=== PATIENT | female | born 1965 | race Caucasian/White ===

== ENCOUNTER → 2017-05-11 | Emergency (ER) | payer BC, OTHER ==
[~2017-05-11] VITALS: Ht 160 cm; Wt 86.4 kg
[~2017-05-11] MED LIST: ARMOUR THYROID30 MG PO; ARMOUR THYROID60 MG PO; BELLADONNA ALK/PHENOBARBITAL 5 ML UDC PO ONE; DICYCLOMINE HCL 20 MG TAB PO ONE; DICYCLOMINE HCL10 MG PO; FAMOTIDINE 20 MG/2 ML VIAL IV STA; LIDOCAINE VISC 2% SOLN 15 ML UDC PO ONE; MAGNESIUM/ALUMINUM/SIMETHICONE 30 ML UDC PO ONE; METOCLOPRAMIDE HCL 10 MG/2ML VIAL IV ONE; ONDANSETRON HCL 4 MG ORAL DISINTEGRATING TAB PO ONE; ONDANSETRON HCL INJ 2 MG/ML VIAL IV ONE; PANTOPRAZOLE 40 MG 10ML VIAL IV STA; PREVACID15 MG PO; RANITIDINE HCL300 M1 PO; SODIUM CHLORIDE 0.9% 1000ML 1,000 ML IV SCH; SUCRALFATE1 G/10 ML PO; SUCRALFATE1 GM PO; ULTRAM 50MG50 MG PO; Z.0.LEVOTHROID25 MCG
== END | disposition home or self-care (01) ==
LOC: FSED 15:16
DX: R10.13 Epigastric pain (principal); R11.0 Nausea; R19.7 Diarrhea, unspecified
CPT/HCPCS: 71020; 74177; 80048; 84484; 85025; 93005; 99283; J2405

== ENCOUNTER 2020-03-01 11:22 | Inpatient (IN) | payer OTHER ==
[~2020-03-01] VITALS: Ht 160 cm; Wt 94.3 kg
[~2020-03-01 11:22] MED LIST changes: -BELLADONNA ALK/PHENOBARBITAL 5 ML UDC PO ONE; -DICYCLOMINE HCL 20 MG TAB PO ONE; -FAMOTIDINE 20 MG/2 ML VIAL IV STA; -LIDOCAINE VISC 2% SOLN 15 ML UDC PO ONE; -MAGNESIUM/ALUMINUM/SIMETHICONE 30 ML UDC PO ONE; -METOCLOPRAMIDE HCL 10 MG/2ML VIAL IV ONE; -ONDANSETRON HCL 4 MG ORAL DISINTEGRATING TAB PO ONE; -ONDANSETRON HCL INJ 2 MG/ML VIAL IV ONE; -PANTOPRAZOLE 40 MG 10ML VIAL IV STA; -SODIUM CHLORIDE 0.9% 1000ML 1,000 ML IV SCH
[2020-03-01] MEDS ORDERED: LEVOTHYROXINE25 MCG (11:54)
[2020-03-01] MEDS ORDERED: NITROGLYCERIN 2% OINT 1 GM PKT TOP ONE (12:00)
[2020-03-01] MEDS ORDERED: LORAZEPAM INJ 2 MG/ML VIAL IV ONE (12:00)
[2020-03-01] MEDS ORDERED: ASPIRIN 81 MG CHEW TAB PO ONE (12:00)
--- OUTSIDE RECORDS SUMMARY | 2020-03-01 12:22 | XMS REPORT | Continuity of Care Document ---
Author Author Vinny Riggins [employer] Organization [employer] Address Unknown Phone Unavailable Care Team Providers Care Second Cook And Baker Name Role Phone 2nd Watch Information [employer] Unavailable Un available Problems Problem Status Onset Date Classification Date Reported Comments Source Claudication Active Problem 05/13/2018 [facility] Encounter for preprocedural cardiovascular examination Active Diagnosis 10/23/2017 [facility] Precordial chest pain Active Diagnosis 05/08/2018 [facility] SOBOE (shortness of breath on exertion) Active Diagnosis 05/08/2018 [facility] Swelling of lower extremity Ac tive Diagnosis 0 05/08/2018 [facility] Other symptoms involving cardiovascular system Active Diagnosis 10/23/2017 [facility] Pre-syncope Active Diagnosis 05/08/2018 [facility] Pain of lower extremity, unspecified laterality Active Diagnosis 10/23/2017 [facility] Acute on chronic diastolic congestive heart failure Active Problem 05/13/2018 [facility] HTN (hypertension), benign Act geno Problem [facility] Tachycardia Active Diagnosis 05/08/2018 [facility] Palpitations Active Diagnosis 05/08/2018 [facility] Medications Medication Details Route Status Patient Instructions Ordering Provider Order Date Source Lasix 1 tablet Orally Active 40 MG Orally Once a day 08/08/2017 [facility] Potassium Chloride ER 1 tablet with food Orally Active 20 MEQ Orally Once a day Cherie 08/08/2017 [facility] Metoprolol Succinate ER 1 tabl et Orally Active 25 MG Orally Once a day 08/08/2017 [facility] Nitroglycerin 1 tablet 5 mins apart 3 max then call 911 Sublingual Active 0.4 MG Sublingual as needed [facility] 07/17/2017 [facility] Aspir-81 1 tablet Orally Active 81 MG Orally Once a day Cherie 07/17/2017 [facility] LEVOTHYROXINE ONE TABLET orally Active 0.5 orally ONCE A DAY Cherie [facility] lionthyronine 1 Tablet orally Active 25 mg orally once a day Cherie [facility] Nitroglycerin 1 tablet 5 mins apart 3 max then call 911 Sublingual Active 0.4 MG Sublingual as needed Sh alaby [facility] Aspirin 1 tablet Orally Active 81 MG Orally Once a day Cherie [facility] Allergies, Adverse Reactions, Alerts Substance Category Reaction Severity Reaction type Status Date Reported Comments Source N.K.D.A. Adverse Reaction Info Not Available Adverse Reaction Active 04/28/2018 [facility] Immunizations No Data Provided for This Section Results No Data Provided for This Section Pathology Reports No Data Provided for This Section Diagnostic Reports No Data Provided for This Section Consultation Notes No Data Provided for This Section Discharge Summaries No Data Provided for This Section History and Physicals No Data Provided for This Section Vital Signs Vital Sign Value Date Comments Source Weight 204.2 04/28/2018 [facility] Height 63 0 04/28/2018 [facility] Heart Rate 72 04/28/2018 [facility] Diastolic (mm Hg) 82 04/28/2018 [facility] Systolic (mm Hg) 134 04/28/2018 [facility] Weight 195 10/21/2017 [facility] Height 63 0 10/21/2017 [facility] Heart Rate 70 10/21/2017 [facility] Diastolic (mm Hg) 100 10/21/2017 [facility] Systolic (mm Hg) 140 10/21/2017 [facility] Weight 195 08/08/2017 [facility] Height 63 0 08/08/2017 [facility] Heart Rate 64 08/08/2017 [facility] Diastolic (mm Hg) 80 08/08/2017 [facility] Systolic (mm Hg) 130 08/08/2017 [facility] Weight 194 07/17/2017 [facility] Height 63 0 07/17/2017 [facility] Heart Rate 66 07/17/2017 [facility] Diastolic (mm Hg) 98 07/17/2017 [facility] Systolic (mm Hg) 122 07/17/2017 [facility] Encounters No Data Provided for This Section Procedures No Data Provided for This Section Assessment and Plan No Data Provided for This Section Plan of Care No Data Provided for This Section Social History No Data Provided for This Section Family History No Data Provided for This Section Advance Directives No Data Provided for This Section Functional Status No Data Provided for This Section
--- OUTSIDE RECORDS SUMMARY | 2020-03-01 12:22 | XMS REPORT | Continuity of Care Document ---
Author Author [facility] t Organization [facility] Address [address] [place] [address] Phone Unavailable Care Team Providers Care Radiation Protection Engineer Name Role Phone KIT PEACE, ANAMIKA PCP Mackenzie Wiseman Attphys Dayami Vega Attphys Philly Naidu Attphys Unavailable Dayami Vega Unavailable Payers Payer Name Policy Type Policy Number Effective Date Expiration Date S our Sliding Fee - Cat 2 CI [id number] 2018 00:00:00 2019-11 00:00:00 [facility] Choice Excha [id number] [facility] Problems Condition Name Condition Details Condition Category Status Onset Date Resolution Date Last Treatment Date Treating Clinician Comments Source PARENT-CHILD RELATIONAL PROBLEM Condition Active 00:00:00 2018-12-05 12:08:12 Dayami Vega [facility] Claudication April dication Active Problem 05/13/2018 [facility] Cardi[facility] Problem Active 2018-05-13 03:45:32 Vinny Riggins Encounter for preprocedural cardiovascular examination Encounter for preprocedural cardiovascular examination Active Diagnosis 10/23/2017 [facility] Cardiovascular Diagnosis Active 2017-10-23 02:46:22 Vinny Riggins Precordial chest pain Prec ordial chest pain Active Diagnosis 05/08/2018 [facility] Cardiovascular Diagnosis Active 2018-05-08 04:04:41 Vinny Riggins SOBOE (shortness of breath on exertion) SOBOE (shortness of breath on exertion) Active Diagnosis 05/08/2018 [facility] Cardiovascular Diagnosis Active 2018-05-08 04:04:41 Ermias Riggins Swelling of lower extremity Sw elling of lower extremity Active Diagnosis 05/08/2018 [facility] Cardiovascular Diagnosis Active 2018-05-08 04:04:41 Vinny Riggins Other symptoms involving cardiovascular system Other symptoms involving cardiovascular system Active Diagnosis 10/23/2017 [facility] Cardiovascular Diagnosis Active 2017-10-23 02:46:22 Me emelina Riggins Pre-syncope Pre- syncope Active Diagnosis 05/08/2018 [facility] Cardiovascular Diagnosis Active 2018-05-08 04:04:41 Vinny Riggins Pain of lower extremity, unspecified laterality Pain of lower extremity, unspecified laterality Active Diagnosis 10/23/2017 [facility] Cardiovascular Diagnosis Active 2017-10-23 02:46:22 Me emelina Riggins Acute on chronic diastolic congestive heart failure Acute on chronic diastolic congestive heart failure Active Problem 05/13/2018 [facility] Problem Active 2018-05-13 03:45:32 Vinny Riggins HTN (hypertension), benign HTN (hypertension), benign Active Problem 05/13/2018 [facility] Problem Active 2018-05-13 03:45:32 Vinny Riggins Tachycardia Tach ycardia Active Diagnosis 05/08/2018 [facility] Cardiovascular Diagnosis Active 2018-05-08 04:04:41 [facility] Palpitations Palp itations Active Diagnosis 05/08/2018 [facility] Cardiovascular Diagnosis Active 2018-05-08 04:04:41 [facility] Allergies, Adverse Reactions, Alerts Allergy Name Allergy Type Status Severity Reaction(s) Onset Date Inacti ve Date Treating Clinician Comments Source N.K.D.A. N.K.D.A. Active Info Not Available 2018-04-28 00:00:00 [facility] Medications Ordered Medication Name Filled Medication Name Start Date Stop Da te Current Medication? Ordering Clinician Indication Dosage Frequency Signature (SIG) Comments Components Source LEVOTHYROXINE 2018-05-08 04:04:41 Yes Joy Crespo ONE TABLET [facility] lionthyronine 2018-05-08 04:04:41 Yes Joy Hendersonlaby 1 Tablet [facility] Nitroglycerin 2018-05-08 04:04:41 Yes Joy Crespo 1 tablet 5 mins apart 3 max then call 911 [facility] Celsa nn Aspirin 2018-05-08 04:04:41 Yes Joy Hendersonlaby 1 tablet [facility] Lasix 2017-08-08 00:00:00 Yes Joy Crespo 1 t ablet [facility] Potassium Chloride ER 2017-08-08 00:00:00 Yes Joy bruno 1 tablet with food [facility] Metoprolol Succinate ER 2017-08-08 00:00:00 Yes Joy Hendersonlaby 1 tablet [facility] Nitroglycerin 2017-07-17 00:00:00 Yes Joy Crespo 1 tablet 5 mins apart 3 max then call 911 [facility] Aspir-81 2017-07-17 00:00:00 Yes Mohamadeo Cherie 1 tablet [facility] Ranitidine Hcl 300 Mg Capsule Ranitidine Hcl 300 Mg Capsule 2017 00:00:00 Yes Penelope Salmon Md 300 Daily [facility] Sucralfate 1 Gm Tablet Sucralfate 1 Gm Tablet 2017-05-11 00:00:00 Yes Penelope Salmon Md 1 Four Times Daily as needed for Abdomina l Pain [facility] Lansoprazole (Prevacid*) 15 Mg Capcr Lansoprazole (Prevacid*) 15 Mg Capcr Yes 30 Daily as needed for Indigestion [facility] Ranitidine Hcl 300 Mg Capsule Ranitidine Hcl 300 Mg Capsule Yes 300 Daily as needed for Indigestion [facility] Sucralfate 1 G/10 Ml Susp Sucralfate 1 G/10 Ml Susp Yes 1 Twice A Day as needed for Indigestion [facility] Thyroid,Pork ([place] Thyroid) 30 Mg Tablet Thyroid,Por k ([place] Thyroid) 30 Mg Tablet Yes 30 Every Other Day [facility] Thyroid,Pork ([place] Thyroid) 60 Mg Tablet Thyroid,Por k ([place] Thyroid) 60 Mg Tablet Yes 60 Every Other Day [facility] Tramadol Hcl (Ultram 50MG*) 50 Mg Tab Tramadol Hcl (Ultram 50MG*) 5 0 Mg Tab Yes 50 Every 6 Hours as needed for Pain [facility] Dicyclomine Hcl 10 Mg Capsule, 10 Mg Oral Dicyclomine Hcl 10 Mg Capsule, 10 Mg Oral 2013-11-01 00:00:00 No 10 Bedtime [facility] Levothyroxine Sodium (Levothroid) 25 Mcg Tablet, Levot hyroxine Sodium (Levothroid) 25 Mcg Tablet, 2013-02-10 00:00:00 No Daily [facility] Vital Signs Vital Name Observation Time Observation Value Comments Source Weight 2018-04-28 16:15:00 [facility] Height 2018-04-28 16:15:00 [facility] Heart Rate 2018-04-28 16:15:00 [facility] Diastolic (mm Hg) 2018-04-28 16:15:00 [facility] Systolic (mm Hg) 2018-04-28 16:15:00 [facility] Weight 2017-10-21 14:30:00 [facility] Height 2017-10-21 14:30:00 [facility] Heart Rate 2017-10-21 14:30:00 [facility] Diastolic (mm Hg) 2017-10-21 14:30:00 [facility] Systolic (mm Hg) 2017-10-21 14:30:00 [facility] Weight 2017-08-08 13:30:00 [facility] Height 2017-08-08 13:30:00 [facility] Heart Rate 2017-08-08 13:30:00 [facility] Diastolic (mm Hg) 2017-08-08 13:30:00 [facility] Systolic (mm Hg) 2017-08-08 13:30:00 [facility] Weight 2017-07-17 18:45:00 [facility] Height 2017-07-17 18:45:00 [facility] Heart Rate 2017-07-17 18:45:00 [facility] Diastolic (mm Hg) 2017-07-17 18:45:00 [facility] Systolic (mm Hg) 2017-07-17 18:45:00 [facility] Procedures Procedure Date / Time Performed Performing Clinician [facility] Psychotherapy - [id number] 2019-02-06 12:47:27 Mayra Wiseman [facility] Psychotherapy - [id number] 2019-01-31 21:07:06 Mayra Wiseman [facility] - [id number] 2019-01-25 13:12:17 Mayra Wiseman [facility] - [id number] 2019-01-18 11:06:33 Mayra Wiseman [facility] - [id number] 2019-01-11 16:31:04 Mayra Wiseman [facility] Psychotherapy - [id number] 2018-12-26 07:56:22 Dayami Vega [facility] - [id number] 2018-12-19 08:47:37 Dayami Vega [facility] - [id number] 2018-12-12 13:45:08 Dayami Vega [facility] - [id number] 2018-12-05 12:05:04 Dayami Vega [facility] Encounters Start Date/Time End Date/Time Encounter Type Admission Type Attendi [facility] Care Department Encounter ID Source 2019-02-05 00:00:00 2019-02-05 00:00:00 Office Visit WisemanMayra lockhart [facility] Encounter/[id number] [facility] 2019-01-29 00:00:00 2019-01-29 00:00:00 Office Visit WisemanMayra lockhartabel [facility] Encounter/[id number] [facility] 2019-01-22 00:00:00 2019-01-22 00:00:00 Office Visit Mayra Wisemanabel [facility] Encounter/[id number] [facility] 2019-01-15 00:00:00 2019-01-15 00:00:00 Office Visit Mayra Wiseman [facility] Encounter/[id number] [facility] 2019-01-08 00:00:00 2019-01-08 00:00:00 Office Visit WisemanMayra lockhartabel [facility] Encounter/[id number] [facility] 2018-12-25 00:00:00 2018-12-25 00:00:00 Office Visit Dayami Vega [facility] Encounter/[id number] [facility] 2018-12-18 00:00:00 2018-12-18 00:00:00 Office Visit Dayami Vega [facility] Encounter/[id number] [facility] 2018-12-11 00:00:00 2018-12-11 00:00:00 Office Visit Dayami Vega [facility] Encounter/[id number] [facility] 2018-12-04 00:00:00 2018-12-04 00:00:00 Office Visit Dayami Vega [facility] Encounter/[id number] [facility] 2018-11-20 00:00:00 2018-11-20 00:00:00 Office Visit Philly Hemphill do [facility] Encounter/[id number] [facility] 2018-05-09 08:01:00 2018-05-09 08:01:00 [place] [id number] [facility] 2018-05-09 08:00:00 2018-05-09 08:00:00 [place] [id number] [facility] 2018-04-28 10:15:00 2018-04-28 10:15:00 Outpatient Joy Crespo Md [place] [id number] [facility] 2017-10-21 09:30:00 2017-10-21 09:30:00 Outpatient [place] [id number] [facility] 2017-10-14 09:39:00 2017-10-14 09:39:00 [place]patient [place] [id number] [facility] 2017-08-08 08:30:00 2017-08-08 08:30:00 Outpatient Joy Crespo Md [place] [id number] [facility] 2017-07-17 14:00:00 2017-07-17 14:00:00 [place] [id number] [facility] 2017-07-17 13:45:00 2017-07-17 13:45:00 Outpatient Joy Crespo Md [place] [id number] [facility] 2017-07-17 13:45:00 2017-07-17 13:45:00 [place] [id number] [facility] 2017-07-01 11:00:00 2017-07-01 11:00:00 Outpatient Joy Jones [id number] [employer] 2017-07-01 09:30:00 2017-07-01 09:30:00 Outpatient Joy Jones [id number] [employer] 2017-05-11 15:16:00 2017-05-11 21:33:00 Departed Emergency Room [facility] [id number] [facility] Results This patient has no known results.
[2020-03-01] MEDS ORDERED: ASPIRIN 81 MG CHEW TAB ONE (13:08)
[2020-03-01] MEDS ORDERED: NITROGLYCERIN 2% OINT 1 GM PKT ONE (13:09)
[2020-03-01] MEDS ORDERED: LORAZEPAM INJ 2 MG/ML VIAL ONE (13:09)
[2020-03-01] MEDS ORDERED: LORAZEPAM 0.5 MG TAB ONE (13:28)
[2020-03-01] MEDS ORDERED: LORAZEPAM 0.5 MG TAB PO ONE (13:30)
--- NOTE | 2020-03-01 15:15 | Emergency Department Note ---
History of Present Illnes History of Present Illness Chief Complaint: Chest Pain/sob History of Present Illness This is a 54 year old female. was doing well prior to this. +covid exposure. was seen at urgent care today and had a negative covid test, negative flu and cxr. pt said she is under alot of stress Historian: Patient Arrival Mode: Car Additional Treatment UMBRELLA TIPPER HAND: seen at urgent care History limited by: condition of the patient (normal) Implementation Director Required: No Onset (how long ago): day(s) (4) Location: substernal Quality: sharp Radiation: Reports non-radiation Severity: moderate Onset quality: gradual Duration (how long): day(s) (4) Timing of current episode: constant Progression: unchanged Chronicity: new Context: Denies recent illness, Denies recent surgery, Denies recent immobilization, Denies recent travel, Denies trauma/injury, Denies new medications, Denies hx of DVT/PE Relieving factors: none Exacerbating factors: none Associated symptoms: Reports chest pain, Reports nausea/vomiting, Reports shortness of breath Treatments prior to arrival: none Past Medical/Family History Physician Review I have reviewed the patient's past medical and family history. Any updates have been documented here. Past Medical History Recent Fever: No Clinical Suspicion of Infectio: No New/Unexplained Change in Ment: No Past Medical History: Hypothyroidism Other Medical History: GI issue Past Surgical History: None Other Surgery: section a pancrease removed, colon resection Social History Smoking Cessation: Never Smoker Counseling Performed: No Alcohol Use: None Any Illegal Drug Use: No Physically hurt or threatened: No Other Last Tetanus: unk Any Pre-Existing Lines (PICC,: No Review of Systems Review of Systems Constitutional: Reports no symptoms EENTM: Reports no symptoms Cardiovascular: Reports as per HPI Respiratory: Reports as per HPI Gastrointestinal: Reports as per HPI Genitourinary: Reports no symptoms Musculoskeletal: Reports no symptoms Integumentary: Reports no symptoms Neurological: Reports no symptoms Psychological: Reports no symptoms Endocrine: Reports no symptoms Hematological/Lymphatic: Reports no symptoms Review of other systems: All other systems negative Physical Exam Related Data Allergies: Coded Allergies: No Known Allergies (Unverified , 05/11/17) Triage Vital Signs Vital Signs Date Time Temp Pulse Resp B/P (MAP) Pulse Ox O2 Delivery O2 Flow Rate FiO2 03/01/20 11:49 98.7 75 18 186/84 97 Room Air Vital signs reviewed: Yes Physical Exam CONSTITUTIONAL Constitutional: Present well-developed, Present well-nourished HENT HENT: Present normocephalic, Present atraumatic, Present oropharynx clear/moist, Present nose normal HENT L/R: Present left ext ear normal, Present right ext ear normal EYES Eyes: Reports PERRL, Reports conjunctivae normal NECK Neck: Present ROM normal, Present supple PULMONARY Pulmonary: Present effort normal, Present breath sounds normal CARDIOVASCULAR Cardiovascular: Present regular rhythm, Present heart sounds normal, Present capillary refill normal, Present normal rate GASTROINTESTINAL Abdominal: Present soft, Present nontender, Present bowel sounds normal GENITOURINARY Genitourinary: Present exam deferred SKIN Skin: Present warm, Present dry MUSCULOSKELETAL Musculoskeletal: Present ROM normal NEUROLOGICAL Neurological: Present alert, Present oriented x 3, Present no gross motor or sensory deficits PSYCHOLOGICAL Psychological: Present judgement normal, Present other (+anxious) Results Laboratory Lab results reviewed: Yes Laboratory comments CBC/BMP/LFT/BNP/D DIMER/COAGS/CARDIAC ENZYMES ALL NORMAL, (COVID,FLU ALL NORMAL FROM URGENT CARE) Imaging Imaging results reviewed: Yes Impressions CXR NORMAL(FROM URGENT CARE) Procedures 12 Lead ECG Interpretation ECG Interpretation : ECG: ECG 1 Implementation Director: Interpreted by ED physician Date: Mar 01, 2020 Time: 11:40 Rhythm: sinus rhythm (NSR) Rate: normal BPM: 81 QRS axis: normal ST segments normal: Yes T waves normal: Yes Clinical Impression: abnormal ECG Additional Comments POOR R WAVES ANTERIOR LEADS Assessment & Plan Medical Decision Making MDM cp, stress reaction Reassessment Reassessment time: 15:30 Reassessment symptoms resolved Assessment & Plan Final Impression: (1) Acute chest pain (2) Chest pain, rule out acute myocardial infarction (3) Dyspnea (4) Stress Depart Disposition: ADMITTED Last Vital Signs Date Time Temp Pulse Resp B/P (MAP) Pulse Ox O2 Delivery O2 Flow Rate FiO2 03/01/20 14:25 181/96 03/01/20 14:11 92 11 93 Room Air 03/01/20 11:49 98.7 Home Meds Active Scripts Sucralfate (SUCRALFATE) 1 Gm Tablet, 1 GM PO QID PRN for ABDOMINAL PAIN, #30 TAB Prov:JUNE OSWALD MD 1/27/18 Ranitidine Hcl (RANITIDINE HCL) 300 Mg Capsule, 300 MG PO DAILY, #30 Prov:JUNE OSWALD MD 05/11/17 Reported Medications Levothyroxine Sodium (LEVOTHYROXINE SODIUM) 25 Mcg Tablet 03/01/20 Tramadol Hcl* (ULTRAM 50MG*) 50 Mg Tab, 50 MG PO Q6 PRN for PAIN 02/10/13 Thyroid,Pork (ARMOUR THYROID) 60 Mg Tablet, 60 MG PO QOD ALTERNATE C 30 MG DOSE 02/10/13 Thyroid,Pork (ARMOUR THYROID) 30 Mg Tablet, 30 MG PO QOD AQLTERNATE C 60 MG DOSE 02/10/13 Lansoprazole* (PREVACID*) 15 Mg Capcr, 30 MG PO DAILY PRN for INDIGESTION 02/10/13 Ranitidine Hcl (RANITIDINE HCL) 300 Mg Capsule, 300 MG PO DAILY PRN for INDIGESTION 02/10/13 Sucralfate (SUCRALFATE) 1 G/10 Ml Susp, 1 MG PO BID PRN for INDIGESTION 02/10/13 Medications in the ED Aspirin 324 mg ONCE ONCE PO Last administered on 03/01/20at 13:05; Admin Dose 324 MG; Start 03/01/20 at 12:00; Stop 03/01/20 at 12:03; Status DC Nitroglycerin 1 gm ONCE ONCE TOP Last administered on 03/01/20at 14:25; Admin Dose 1 GM; Start 03/01/20 at 12:00; Stop 03/01/20 at 12:01; Status DC Lorazepam 1 mg ONCE ONCE IV ; Start 03/01/20 at 12:00; Stop 03/01/20 at 13:23; Status DC Aspirin 324 mg STK-MED ONCE .ROUTE ; Start 03/01/20 at 13:08; Stop 03/01/20 at 13:01; Status DC Lorazepam STK-MED ONCE .ROUTE ; Start 03/01/20 at 13:09; Stop 03/01/20 at 13:02; Status DC Nitroglycerin 1 gm STK-MED ONCE .ROUTE ; Start 03/01/20 at 13:09; Stop 03/01/20 at 13:02; Status DC Lorazepam 2 mg STK-MED ONCE .ROUTE ; Start 03/01/20 at 13:28; Stop 03/01/20 at 13:22; Status DC Lorazepam 2 mg ONCE ONCE PO ; Start 03/01/20 at 13:30; Stop 03/01/20 at 13:33; Status DC SUKUMAR MENJIVAR Mar 01, 2020 15:15
[2020-03-01] MEDS ORDERED: SODIUM CHLORIDE 0.9% 1000ML 1,000 ML IV STA (15:22)
--- OUTSIDE RECORDS SUMMARY | 2020-03-01 16:06 | XMS REPORT | Continuity of Care Document ---
Author Author Vinny Riggins [employer] Organization [employer] Address Unknown Phone Unavailable Care Team Providers Care Settlement Processor Name Role Phone [employer] Unavailable Un available Problems Problem Status Onset [...] Sublingual Active 0.4 MG Sublingual as needed [facility] 07/17/2017 CL Cardiovascular Aspir-81 1 tablet [...]
--- OUTSIDE RECORDS SUMMARY | 2020-03-01 16:06 | XMS REPORT | Continuity of Care Document ---
Author Author [facility] t Organization [facility] Address [address] [place] [address] Phone Unavailable Care Team Providers Care Furnace Charger Name Role Phone KIT PEACE, ANAMIKA PCP Mackenzie Wiseman Attphys Dayami Vega Attphys Philly Naidu Attphys Unavailable Dayami Vega Unavailable Payers Payer Name Policy Type Policy Number Effective Date Expiration Date S our Sliding Fee - Cat 2 CI [id number] 2018 00:00:00 2019-11 00:00:00 [facility] Health Choice Excha [id number] [facility] Problems Condition Name Condition Details Condition Category Status Onset Date Resolution Date Last Treatment Date Treating Clinician Comments Source PARENT-CHILD RELATIONAL PROBLEM Condition Active 00:00:00 2018-12-05 12:08:12 Dayami Vega [facility] Claudication April dication Active Problem 05/13/2018 CL [...] 05/08/2018 CL Cardiovascular Diagnosis Active 2018-05-08 04:04:41 [facility] Palpitations Palp itations Active Diagnosis 05/08/2018 CL Cardiovascular Diagnosis Active 2018-05-08 04:04:41 [facility] Allergies, Adverse Reactions, Alerts Allergy Name Allergy Type Status Severity Reaction(s) Onset Date Inacti ve Date Treating Clinician Comments Source N.K.D.A. N.K.D.A. Active Info Not Available 2018-04-28 00:00:00 [facility] Medications Ordered Medication Name Filled Medication Name Start Date Stop Da te Current Medication? Ordering Clinician Indication Dosage Frequency Signature (SIG) Comments Components Source LEVOTHYROXINE 2018-05-08 04:04:41 Yes Joy Crespo ONE TABLET [facility] lionthyronine 2018-05-08 04:04:41 Yes Joy Hendersonlaby 1 Tablet [facility] Nitroglycerin 2018-05-08 04:04:41 Yes Joy Crespo 1 tablet 5 mins apart 3 max then call 911 [facility] Celsa nn Aspirin 2018-05-08 04:04:41 Yes Joy Hendersonlaby 1 tablet [facility] Lasix 2017-08-08 00:00:00 Yes Joy Crespo 1 t ablet [facility] Potassium Chloride ER 2017-08-08 00:00:00 Yes Joy bruno 1 tablet with food [facility] Metoprolol Succinate ER 2017-08-08 00:00:00 Yes Joy Hendersonlaby 1 tablet [facility] Nitroglycerin 2017-07-17 00:00:00 Yes Joy Crespo 1 tablet 5 mins apart 3 max then call 911 [facility] Aspir-81 2017-07-17 00:00:00 Yes Mohamadeo Cherie 1 tablet [facility] Ranitidine Hcl 300 Mg Capsule Ranitidine Hcl 300 Mg Capsule 2017 00:00:00 Yes Penelope Salmon Md 300 Daily [facility] Sucralfate 1 Gm Tablet Sucralfate 1 Gm Tablet 2017-05-11 00:00:00 Yes Penelope Salmon Md 1 Four Times Daily as needed for Abdomina l Pain [facility] Lansoprazole (Prevacid*) 15 Mg Capcr Lansoprazole (Prevacid*) 15 Mg Capcr Yes 30 Daily as needed for Indigestion [facility] Ranitidine Hcl 300 Mg Capsule Ranitidine Hcl 300 Mg Capsule Yes 300 Daily as needed for Indigestion [facility] Sucralfate 1 G/10 Ml Susp Sucralfate 1 G/10 Ml Susp Yes 1 Twice A Day as needed for Indigestion [facility] Thyroid,Pork (Darragh Thyroid) 30 Mg Tablet Thyroid,Por k (Darragh Thyroid) 30 Mg Tablet Yes 30 Every Other Day [facility] Thyroid,Pork (Darragh Thyroid) 60 Mg Tablet Thyroid,Por k (Darragh Thyroid) 60 Mg Tablet Yes 60 Every Other Day [facility] Tramadol Hcl (Ultram 50MG*) 50 Mg Tab Tramadol Hcl (Ultram 50MG*) 5 0 Mg Tab Yes 50 Every 6 Hours as needed for Pain [facility] Dicyclomine Hcl 10 Mg Capsule, 10 Mg Oral Dicyclomine Hcl 10 Mg Capsule, 10 Mg Oral 2013-11-01 00:00:00 No 10 Bedtime [facility] Levothyroxine Sodium (Levothroid) 25 Mcg Tablet, Levot hyroxine Sodium (Levothroid) 25 Mcg Tablet, 2013-02-10 00:00:00 No Daily [facility] Vital Signs Vital Name Observation Time Observation Value Comments Source Weight 2018-04-28 16:15:00 [facility] Height 2018-04-28 16:15:00 [facility] Heart Rate 2018-04-28 16:15:00 [facility] Diastolic (mm Hg) 2018-04-28 16:15:00 [facility] Systolic (mm Hg) 2018-04-28 16:15:00 [facility] Weight 2017-10-21 14:30:00 [facility] Height 2017-10-21 14:30:00 [facility] Heart Rate 2017-10-21 14:30:00 [facility] Diastolic (mm Hg) 2017-10-21 14:30:00 [facility] Systolic (mm Hg) 2017-10-21 14:30:00 [facility] Weight 2017-08-08 13:30:00 [facility] Height 2017-08-08 13:30:00 [facility] Heart Rate 2017-08-08 13:30:00 [facility] Diastolic (mm Hg) 2017-08-08 13:30:00 [facility] Systolic (mm Hg) 2017-08-08 13:30:00 [facility] Weight 2017-07-17 18:45:00 [facility] Height 2017-07-17 18:45:00 [facility] Heart Rate 2017-07-17 18:45:00 [facility] Diastolic (mm Hg) 2017-07-17 18:45:00 [facility] Systolic (mm Hg) 2017-07-17 18:45:00 [facility] Procedures Procedure Date / Time Performed Performing Clinician [facility] Psychotherapy - [id number] 2019-02-06 12:47:27 Mayra Wiseman [facility] Psychotherapy - [id number] 2019-01-31 21:07:06 Mayra Wiseman [facility] Psychotherapy - [id number] 2019-01-25 13:12:17 Mayra Wiseman [facility] Psychotherapy - [id number] 2019-01-18 11:06:33 Mayra Wiseman [facility] Psychotherapy - [id number] 2019-01-11 16:31:04 Mayra Wiseman [facility] Psychotherapy - [id number] 2018-12-26 07:56:22 Dayami Vega [facility] Psychotherapy - [id number] 2018-12-19 08:47:37 Dayami Vega [facility] Psychotherapy - [id number] 2018-12-12 13:45:08 Dayami Vega [facility] Psychotherapy - [id number] 2018-12-05 12:05:04 Dayami Vega [facility] Encounters Start Date/Time End Date/Time Encounter Type Admission Type [facility] Care Department Encounter ID Source 2019-02-05 00:00:00 2019-02-05 00:00:00 Office Visit WisemanMayra lockhart [facility] Encounter/[id number] [facility] 2019-01-29 00:00:00 2019-01-29 00:00:00 Office Visit WisemanMayra lockhartabel [facility] Encounter/[id number] [facility] 2019-01-22 00:00:00 2019-01-22 00:00:00 Office Visit Mayra Wisemanabel [facility] Encounter/[id number] [facility] 2019-01-15 00:00:00 2019-01-15 00:00:00 Office Visit Mayra Wiseman [facility] Encounter/[id number] [facility] 2019-01-08 00:00:00 2019-01-08 00:00:00 Office Visit WisemanMayra lockhartabel [facility] Encounter/[id number] [facility] 2018-12-25 00:00:00 2018-12-25 00:00:00 Office Visit Dayami Vega [facility] Encounter/[id number] [facility] 2018-12-18 00:00:00 2018-12-18 00:00:00 Office Visit Dayami Vega [facility] Encounter/[id number] [facility] 2018-12-11 00:00:00 2018-12-11 00:00:00 Office Visit Dayami Vega [facility] Encounter/[id number] [facility] 2018-12-04 00:00:00 2018-12-04 00:00:00 Office Visit Dayami Vega [facility] Encounter/[id number] [facility] 2018-11-20 00:00:00 2018-11-20 00:00:00 Office Visit Philly Hemphill do [facility] Encounter/[id number] [facility] 2018-05-09 08:01:00 2018-05-09 08:01:00 [place] [id number] [facility] 2018-05-09 08:00:00 2018-05-09 08:00:00 [place]patient [place] [id number] [facility] 2018-04-28 10:15:00 2018-04-28 10:15:00 Outpatient Joy Crespo [place] [id number] [facility] 2017-10-21 09:30:00 2017-10-21 09:30:00 Outpatient [place] [id number] [facility] 2017-10-14 09:39:00 2017-10-14 09:39:00 [place]patient [place] [id number] [facility] 2017-08-08 08:30:00 2017-08-08 08:30:00 Outpatient Joy Crespo Md Pa [place] Md [place] [id number] [facility] 2017-07-17 14:00:00 2017-07-17 14:00:00 [place] [id number] [facility] 2017-07-17 13:45:00 2017-07-17 13:45:00 [place] [id number] [facility] 2017-07-17 13:45:00 2017-07-17 13:45:00 [place]patient [place] Greyy [place] [id number] [facility] 2017-07-01 11:00:00 2017-07-01 11:00:00 Outpatient Joy Jones [id number] [facility] 2017-07-01 09:30:00 2017-07-01 09:30:00 Outpatient Joy Jones [id number] [facility] 2017-05-11 15:16:00 2017-05-11 21:33:00 Departed Emergency Room [facility] [id number] [facility] Results This patient has no known results.
--- NOTE | 2020-03-01 16:08 | NUR ---
Contacted [facility] to transport to room 211 ETA is 30 minutes
--- NOTE | 2020-03-01 16:26 | NUR ---
Report to MYRTLE Kumar
--- NOTE | 2020-03-01 16:50 | NUR ---
Pt quality assurance monitor chassis alarmed, checked on pt and she was holding her chest, asked if her pain was back and she stated that her pain was 7/10. Some EKG changes from the first EKG, informed Dr. Smith and he called Pedro and let him know. Pt given zofran, pepcid, morphine and lovenox per MD orders. Pt states that the morphine took the edge off and the pain is no longer going down her left arm. Pt is drowsy and has been dozing but arouses easily to voice.
[2020-03-01] MEDS: ONDANSETRON HCL INJ 2MG/ML 2ML 2 MG/ML VIAL IV PRN ×2 (17:00→21:00)
[2020-03-01] MEDS: FAMOTIDINE 20 MG/2 ML VIAL IV SCH ×2 (17:00→21:00)
[2020-03-01] MEDS ORDERED: ONDANSETRON HCL INJ 2MG/ML 2ML 2 MG/ML VIAL ONE (17:04)
[2020-03-01] MEDS ORDERED: MORPHINE SULFATE INJ 4 MG/ML INJ 1ML ONE (17:04)
[2020-03-01] MEDS ORDERED: FAMOTIDINE 20 MG/2 ML VIAL IV ONE (17:05)
[2020-03-01] MEDS ORDERED: ENOXAPARIN SODIUM INJ 100 MG/ML SYR SC STA (17:06)
[2020-03-01] MEDS ORDERED: MORPHINE SULFATE 5 MG/ML VIAL IV ONE (17:15)
[2020-03-01] MEDS ORDERED: MORPHINE SULFATE INJ 4 MG/ML INJ 1ML IV ONE (17:15)
--- NOTE | 2020-03-01 17:20 | NUR ---
Called MYRTLE Kumar and informed him of the changes and will fax the troponin for them to evaluate.
[2020-03-01 17:45] VITALS: BP 140/98
[2020-03-01] MEDS ORDERED: NITROGLYCERIN 2% OINT 1 GM PKT TOP SCH (18:00)
--- NOTE | 2020-03-01 18:00 | NUR ---
PT ARRIVED FROM [facility] VIA [facility]. PT IS ON 6L NC AT THE TIME OF RECEIVING PT FROM EMS. PT IS AAOX4. EDUCATED PT ABOUT FALL PRECAUTIONS. PT VERBALIZED UNDERSTANDING. CALL LIGHT WITH IN EASY REACH. INSTRUCTED PT TO USE CALL LIGHT FOR ALL THE NEEDS. BED IS LOW AND LOCKED. SIDE RAILS X2. BED ALARM IS ON. ALL SAFETY MEASURES IN PLACE. PT DENIES NEEDS AT THIS TIME.
[2020-03-01 18:02] VITALS: BP 140/98
--- NOTE | 2020-03-01 18:05 | NUR ---
DR. FRAZIER AT BEDSIDE. INFORMED DR ABOUT PT HR 105 ST , BP 140/98.
[2020-03-01 18:37] LABS: CREATINE KINASE 103 IU/L (29-168)
--- NOTE | 2020-03-01 18:50 | NUR ---
BEDSIDE SHIFT REPORT GIVEN TO THE PLAN CONSULTANT RN. PT DENIED FURTHER NEEDS
--- NOTE | 2020-03-01 19:00 | NUR ---
Resumed care of patient. Patient awake and resting in bed, respirations even and unlabored on 6L O2 NC. Patient c/o chest pressure 8/10. Cardiac markers negative, sinus rhythm in 90s per telemetry. PRN morphine and one-time dose of Ativan given approximately 2 hours ago. Patient educated on plan of care, reportable signs and symptoms, and relaxation techniques. Patient states she will consider asking for morphine again when next dose is available. Bed locked and in lowest position, side rails upx3, alarm on, call light placed within reach. Patient instructed to call for assistance if needed, verbalized understanding. All safety measures in place.
--- NOTE | 2020-03-01 19:41 | NUR ---
Patient off the unit in radiology for CT chest with contrast. Radiology reporting that they need additional IV access. 20g peripheral IV started to right forearm.
--- NOTE | 2020-03-01 20:01 | NUR ---
Patient returned to unit from CT. In stable condition, respirations even and unlabored on O2 NC. Sinus rhythm in 90s per telemetry. All safety measures in place.
[2020-03-01] MEDS ORDERED: SODIUM CHLORIDE 0.9% 50ML 50 ML ONE (20:23)
[2020-03-01] MEDS ORDERED: IOPAMIDOL 370 MG/ML 200 ML INFUS..BTL INJ ONE (20:23)
--- NOTE | 2020-03-01 20:25 | Diagnostic Imaging Report ---
EXAM: CT Chest WITH contrast 03/01/2020 7:34 PM INDICATION: ^PE PROTOCOL ^[id number] ^193 ^Y COMPARISON: None TECHNIQUE: Chest was scanned utilizing a multidetector helical scanner from the lung apex through the level of the adrenal glands with administration of IV contrast. Coronal and sagittal reformations were obtained. Routine protocol was performed. IV CONTRAST: 100 mL of Omnipaque 300 COMPLICATIONS: None RADIATION DOSE: Total DLP: 359 mGy*cm Estimated effective dose: (DLP x 0.014 x size factor) mSv CTDIvol has been reviewed. It is below the limits set by the Radiation Protocol Committee (RPC). Dose modulation, iterative reconstruction, and/or weight based adjustment of the mA/kV was utilized to reduce the radiation dose to as low as reasonably achievable. FINDINGS: LINES/ TUBES: None. VASCULAR: There are no filling defects within the pulmonary arteries to the segmental level. The main pulmonary artery has normal caliber measuring 2.3. The ascending and descending aorta have normal enhancement and caliber measuring 2.9 and 2.2 cm, respectively. LUNGS, PLEURA AND AIRWAYS: Evaluation of the lungs is limited by respiratory motion artifact. Despite this limitations, there are no focal consolidation, pleural effusion or pneumothorax. No suspicious pulmonary nodule/masses. There is bibasilar atelectasis. Airways are normal. HEART AND MEDIASTINUM: The thyroid gland is normal. No mediastinal, hilar or axillary lymphadenopathy. The heart is mildly enlarged. There is no pericardial effusion. There are mild atherosclerotic calcifications in the aorta and coronary arteries. UPPER ABDOMEN: There is partially imaged pneumobilia of indeterminate cause. The remainder of the imaged upper abdomen is within normal limits. BONES: There are degenerative changes in the thoracic spine. SOFT TISSUES: Unremarkable. IMPRESSION: 1. No evidence of pulmonary embolism to the segmental levels. 2. No acute intrathoracic abnormality identified. 3. Mild cardiomegaly with mild atherosclerotic calcification of coronary vessels. 4. Partially imaged pneumobilia of indeterminate cause. Correlate with history of recent surgery. A CT of the abdomen/pelvis can be obtained if clinically indicated. Signed by: Yessi Mccain MD on 03/01/2020 8:21 PM
[2020-03-01] MEDS: MORPHINE SULFATE 2 MG/ML SYR 1ML IV PRN (21:00)
[2020-03-01] MEDS: SODIUM CHLORIDE 0.9% 1000ML 1,000 ML IV SCH (21:00)
--- NOTE | 2020-03-01 21:56 | Consultation ---
DATE OF CONSULTATION: 03/01/2020 Cardiac Consultation REASON FOR CONSULTATION: Chest pain. HISTORY: A 54-year-old lady with known long-standing history of GI problems. In fact, she had cholecystectomy in 2002 due to pancreatitis, biliary tract stent, removal of polyps and a lot of procedures over the years. She also lost 1 foot of her GI tract for diverticulosis. She does have hypothyroidism, obesity, and she is diabetic with hemoglobin A1c of 7%, not taking any medication. She was in her usual status of health, however, for the last two days she is having chest pain over the left breast radiating to her left arm. The chest pain was very vague, sharp and pinpoint, etc. However, three years ago, she was seen by underwater hunter trapper in 2017 and she had been told she had abnormal nuclear stress test, she needs cardiac cath, but at that time she lost her insurance and did not proceed with that. Of note, the patient is a very poor historian. Her chest pain is not related to activity. It is for the last two days. There is history of exposure to COVID. However, her COVID test herself is negative. There is shortness of breath, chest tightness, chest pressure, sharp pain and name it, she will have all the types of chest pain. The patient really in pain and she seems uncomfortable. Two sets of cardiac enzymes are negative. She does have also shortness of breath. There are symptoms to suggest sleep apnea. REVIEW OF SYSTEMS: GENERAL: No fever. No chills. HEENT: No vision problem. No hearing problem. PULMONARY AND CARDIAC: As per above. There is no pleuritic component. There is no cough. No hemoptysis. GI: Very symptomatic with severe GERD and a lot of GI symptoms. : Increased frequency of urination. MUSCULOSKELETAL: Aches and pain, general debility, not feeling well. ENDOCRINE: Diabetic, not yet on medication. SOCIAL HISTORY: She is . She is nonsmoker. She is not alcohol drinker. 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 HOME MEDICATIONS: Include levothyroxine, L-thyroxine and [place] Thyroid in addition to Ultram p.r.n., ranitidine and Carafate and sometimes she takes Protonix. ALLERGIES: NONE. PAST MEDICAL HISTORY: 1. Hypothyroidism. 2. Obesity. 3. Cholecystectomy in 2002. 4. Repeated pancreatitis. 5. ERCP and removal of stent. 6. Removal of cyst from her biliary tract. 7. GERD. 8. Diabetes mellitus with hemoglobin A1c of 7%, not on any medication. FAMILY HISTORY: The patient is adopted. She does have one healthy son and one healthy daughter. PHYSICAL EXAMINATION: GENERAL: Obese lady with height of 5 feet 4 inches, weight of 210 pounds. VITAL SIGNS: Blood pressure 140/80, heart rate of 100, respiratory rate of 20, temperature of 98 Fahrenheit. HEENT: Pupils are reactive. NECK: No elevation of jugular venous pulsation. No bruit. CHEST: Decreased air entry in bases. HEART: PMI 5th left intercostal space. Normal first and second heart sounds. ABDOMEN: Obese. Scar of previous surgery. No tenderness. No rebound. EXTREMITIES: No cyanosis, no clubbing, no edema. Obesity, but no signs of deep venous thrombosis. NEUROLOGIC: Nonfocal. LAB DATA: Two sets of troponin are normal. The rest of the lab is not available, done in the outpatient emergency room. IMPRESSION AND PLAN: 1. Chest pain with typical and atypical characteristics. Three years ago, the patient had abnormal stress test. This will increase the probability of coronary artery disease. 2. Long problem with GI symptoms and the complication as outlined above. 3. Obesity. 4. Diabetes mellitus. 5. Possible hyperlipidemia. 6. Abnormal stress test three years ago. Cardiac [place], my recommendation and we discussed the option between invasive and noninvasive approach. The patient wants noninvasive approach, so we will schedule her for Lexiscan. Meanwhile, we will do serial cardiac enzymes. We will check her amylase, lipase, and CMP since it is not available and CBC. A CT chest also will be beneficial to rule out the remote possibility of pulmonary embolism. At the same time, it will help in managing her complaint of shortness of breath and history of exposure to COVID. The patient opted for noninvasive workup, so we will schedule her for nuclear stress test and we will schedule her for an echocardiogram. We will follow the patient's progression with you and would like to thank you for your kind referral; of course explained to the patient if her cardiac enzymes are elevated, then another plan will be done. MD GO Muro/NAKUL /[id number]
[2020-03-01 23:38] VITALS: BP 140/98
[2020-03-01 23:47] VITALS: BP 140/98
[2020-03-02] VITALS (8 sets, daily range): BP systolic 107–130; BP diastolic 68–80
[2020-03-02] MEDS: MORPHINE SULFATE 2 MG/ML SYR 1ML IV PRN ×4 (00:40→20:10)
[2020-03-02 05:13] LABS: BASOPHILS % 0.1 % (0.0-1.0); HEMOGLOBIN 13.9 g/dL (12.0-16.0); LYMPHOCYTES # (AUTO) 1.3 (1.0-3.2); LYMPHOCYTES % 8.9 % (18.0-39.1); MEAN CORPUSCULAR HEMOGLOBIN 32.8 pg (28-32); MEAN CORPUSCULAR HGB CONC 33.9 g/dL (31-35); MEAN CORPUSCULAR VOLUME 96.7 fL (81-99); MONOCYTES # (AUTO) 0.5 (0.2-0.8); MONOCYTES % 3.3 % (4.4-11.3); NEUTROPHILS # (AUTO) 12.2 (2.1-6.9); NEUTROPHILS % 87.1 % (38.7-80.0); PLATELET COUNT 199 x10e3/uL (140-360); RED BLOOD COUNT 4.24 x10e6/uL (3.6-5.1); RED CELL DISTRIBUTION WIDTH 12.5 % (11.7-14.4)
[2020-03-02 05:33] LABS: AMYLASE 57 U/L (25-125); LIPASE 50 U/L (8-78)
[2020-03-02 05:35] LABS: CHOL/HDL RATIO 5.2 (3.0-3.6)
[2020-03-02 05:40] LABS: ALANINE AMINOTRANSFERASE 28 IU/L (0-55); ALBUMIN 3.2 g/dL (3.5-5.0); ALKALINE PHOSPHATASE 56 IU/L (40-150); BLOOD UREA NITROGEN 16 mg/dL (7-26); BUN/CREATININE RATIO 19 (6-25); CALCIUM 8.5 mg/dL (8.4-10.2); CARBON DIOXIDE 24 mmol/L (22-29); CHLORIDE 111 mmol/L (98-107); CREATININE, SERUM 0.84 mg/dL (0.57-1.11); EST GLOMERULAR FILTRATION RATE > 60 ML/MIN (60-); GLUCOSE 188 mg/dL (74-118); SODIUM 139 mmol/L (136-145)
[2020-03-02 05:53] LABS: THYROID STIMULATING HORMONE 1.126 uIU/mL (0.350-4.940)
[2020-03-02] MEDS: SODIUM CHLORIDE 0.9% 1000ML 1,000 ML IV SCH ×2 (06:18→16:18)
--- NOTE | 2020-03-02 07:00 | NUR ---
BEDSIDE SHIFT REPORT RECEIVED FROM THE PROCESSOR INSPECTOR RN. EDUCATED PT ABOUT FALL PRECAUTIONS. PT VERBALIZED UNDERSTANDING. CALL LIGHT WITH IN EASY REACH. INSTRUCTED PT TO USE CALL LIGHT FOR ALL THE NEEDS. BED IS LOW AND LOCKED. SIDE RAILS X2. BED ALARM IS ON. ALL SAFETY MEASURES IN PLACE. PT IS ON NPO. PT DENIES NEEDS AT THIS TIME.
[2020-03-02] MEDS: ASPIRIN 325 MG TAB EC PO SCH (09:00)
--- NOTE | 2020-03-02 09:00 | NUR ---
STAT COVID SCREEN PER DR. IRBY. INFORMED THE SAME TO COMMUNITY MIDWIFE. TRANSFER PT TO 299 PER HS. PT C/O THROAT PAIN AND PT IS ON 2L NC. AWARE.
--- NOTE | 2020-03-02 09:15 | NUR ---
PT TRANSFERRED SAFELY TO ROOM 299. TRANSFER REPORT GIVEN TO THE RN. PT DENIED FURTHER NEEDS. PT IS AAOX4 AND NO DISTRESS NOTED.
--- NOTE | 2020-03-02 09:16 | History and Physical ---
HISTORY OF PRESENT ILLNESS: Ms. Hastings is a 54-year-old female with history of diabetes, hyperlipidemia, reflux, hypothyroid disease, who came to the emergency room complaining of 1-day history of chest pain, on and off like a heaviness, lasting 20 minutes with some shortness of breath and body aches, so she decided to come to the emergency room. PAST MEDICAL HISTORY: She has hypothyroidism, reflux, diabetes, and hyperlipidemia. PAST SURGICAL HISTORY: Cholecystectomy, appendectomy, colon resection due to diverticulitis. SOCIAL HISTORY: She does not smoke. She drinks occasionally. She lives at home. ALLERGIES: NO KNOWN DRUG ALLERGIES. PHYSICAL EXAMINATION: GENERAL: Today, she is awake and alert. VITAL SIGNS: Temperature is 97.8, blood pressure 126/78. HEART: Regular rate. LUNGS: Clear to auscultation. ABDOMEN: Soft. LABORATORY DATA: On the blood work, white count is 14,000, hemoglobin 13.9, hematocrit 41, potassium 5.0, glucose is 188. Troponin negative, the other one is still pending. Chest CT on admission shows no evidence of PE. No acute intrathoracic abnormality. Mild cardiomegaly with some calcifications of the coronary artery disease. She has a partially-imaged pneumobilia of indeterminate cause. ASSESSMENT: 1. Atypical chest pain, rule out coronary artery disease. 2. Reflux. 3. Diabetes type 2 with hyperglycemia. 4. Obesity. 5. Hyperlipidemia. 6. Hypothyroidism. PLAN: At the present time is to continue ADA diet, sliding scale with insulin. She is scheduled for Lexiscan today. Probably patient is going to need COVID test. Abdominal and pelvic CT due to pneumobilia. All this was discussed in detail with the patient. All questions were answered to satisfaction. MD CORBY Hand/MODL /[id number]
--- NOTE | 2020-03-02 09:40 | NUR ---
ASSUMED CARE. PATIENT AAOX3. ACYANOTIC. NO DISTRESS NOTED. RESTING IN BED. CALL LIGHT IN REACH. SIDE RAILS UP X2. BED LOW AND LOCKED.
[2020-03-02 09:54] LABS: CREATINE KINASE 70 IU/L (29-168)
[2020-03-02] MEDS: FAMOTIDINE 20 MG/2 ML VIAL IV SCH ×2 (09:58→21:00)
[2020-03-02 13:43] LABS: CREATINE KINASE 94 IU/L (29-168)
[2020-03-02] MEDS: METOPROLOL TARTRATE 25 MG TAB PO SCH (16:21)
--- NOTE | 2020-03-02 18:55 | NUR ---
Received nursing shift report from morning nurse. No acute distress noted.
[2020-03-02] MEDS: ONDANSETRON HCL INJ 2MG/ML 2ML 2 MG/ML VIAL IV PRN (20:10)
[2020-03-02] MEDS ORDERED: ATORVASTATIN 20 MG TAB PO SCH (21:00)
[2020-03-02] MEDS ORDERED: SODIUM CHLORIDE 0.9% 50ML 50 ML ONE (22:18)
[2020-03-02] MEDS ORDERED: IOPAMIDOL 370 MG/ML 200 ML INFUS..BTL INJ ONE (22:18)
--- NOTE | 2020-03-02 22:41 | Diagnostic Imaging Report ---
EXAM: CT Abdomen and Pelvis WITH contrast INDICATION: partially imaged pneumobilia of determinate cause COMPARISON: CT dated 11/01/2013.. TECHNIQUE: Abdomen and pelvis were scanned utilizing a multidetector helical scanner from the lung base to the pubic symphysis after administration of IV contrast. Coronal and sagittal reformations were obtained. Routine protocol was performed. Scan was performed when during portal venous phase. IV CONTRAST: 100 mL of Isovue 370 ORAL CONTRAST: None COMPLICATIONS: None FINDINGS: LOWER THORAX: Mild dependent atelectasis. HEPATOBILIARY: No focal hepatic lesions. Dilatation of the extra hepatic bile duct measuring up to 1.3 cm. Air-fluid level in the proximal extra hepatic duct moderate. Mild intrahepatic biliary ductal dilatation with pneumobilia. Question 8 mm enhancing lesion in the distal extrahepatic duct, but not well assessed. GALLBLADDER: Not visualized. SPLEEN: No splenomegaly. PANCREAS: No focal masses or ductal dilatation. ADRENALS: No adrenal nodules KIDNEYS/URETERS: Kidneys enhance symmetrically. No hydronephrosis. Indeterminate 1.3 cm cystic lesion measures mildly greater than simple fluid attenuation. Scattered subcentimeter hypodensities are too small to characterize, likely cysts. No stones. GI TRACT: No abnormal distention, wall thickening, or evidence of bowel obstruction. Appendix is not clearly identified. There is however no fat stranding or adenopathy in the right lower quadrant to suggest appendicitis. Colonic anastomosis in the left lower quadrant. PELVIC ORGANS/BLADDER: Tubal ligation clips.. LYMPH NODES: No lymphadenopathy. VESSELS: Unremarkable. with PERITONEUM / RETROPERITONEUM: No free air or fluid. 1.6 cm round lesion with thin peripheral soft tissue densities wall and centrally fat density in the lower anterior mesenteric fat likely represents fat necrosis. BONES: Unremarkable. SOFT TISSUES: Eventration of the anterior abdominal wall with bowel loops. No evidence of obstruction. IMPRESSION: 1. Dilated common bile duct measuring up to 1.3 cm with mild intrahepatic biliary duct dilatation and pneumobilia is not significantly changed from 2013. 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 However, there is a suggestion of a enhancing lesion in the distal common bile duct which raises the possibility of a polyp, but other malignant etiologies are not excluded. Consider nonemergent GI consultation and/or liver protocol MRI/MRCP for further evaluation. 2. Indeterminate 1.3 cm right renal cystic lesion measures greater than simple fluid attenuation. Finding may relate to a hemorrhagic proteinaceous cyst, but a cystic renal neoplasm is also considered. This could be assessed on the above recommended MRI/MRCP versus renal mass protocol MRI. Signed by: Romeo Pitt MD on 03/02/2020 10:38 PM
--- NOTE | 2020-03-02 22:53 | NUR ---
Pt c/o unable to be able to sleep and pain medication not lasting. HR fluctuating in the low 50s. c/o 5/10 crushing chest pain radiating to back. Spoke with Dr. Ansari regarding health concerns, ordered to stop Morphine, start Dilaudid 1mg PO every 3 hrs prn and Ambien 5mg PO HS prn, continue to monitor Pt.
[2020-03-02] MEDS ORDERED: ZOLPIDEM TARTRATE 5 MG TAB PO PRN (23:00)
[2020-03-03] VITALS (7 sets, daily range): BP systolic 106–164; BP diastolic 62–88
[2020-03-03] MEDS: HYDROMORPHONE 1MG/1ML INJ IV PRN ×3 (02:33→21:18)
[2020-03-03] MEDS: SODIUM CHLORIDE 0.9% 1000ML 1,000 ML IV SCH ×4 (02:33→21:18)
[2020-03-03] MEDS: ATORVASTATIN 40 MG TAB PO SCH ×2 (02:47→21:00)
--- NOTE | 2020-03-03 07:10 | NUR ---
ASSUMED CARE. PATIENT RESTING IN BED. AAOX3. ACYANOTIC. NO DISTRESS NOTED. CALL LIGHT IN REACH. SIDE RAILS UP X2. BED LOW AND LOCKED.
[2020-03-03] MEDS ORDERED: DEXTROSE 50% SYRINGE 50 ML IV PRN (07:30)
[2020-03-03] MEDS: INSULIN LISPRO 100 UNIT/1 ML 3ML VIAL SQ SCH ×4 (07:30→21:04)
[2020-03-03] MEDS: METOPROLOL TARTRATE 25 MG TAB PO SCH ×2 (09:00→18:00)
--- NOTE | 2020-03-03 09:32 | Progress Note ---
DATE: 03/03/2020 SUBJECTIVE: Ms. Hastings is a 54-year-old female with history of diabetes, hypertension, hyperlipidemia, reflux, hypothyroidism with an abnormal stress test two years ago, but she never went for followup. She came to the emergency room complaining of few days of chest pain on and off like a heaviness, lasting 20 minutes with mild shortness of breath. She is seen by certified orthotic fitter. We are awaiting for COVID results since the patient was complaining of sore throat yesterday. If COVID comes back negative, the patient is going to go for Lexiscan stress test. PHYSICAL EXAMINATION: Today, she states she is feeling better. Her throat feels better. Temperature is 98, blood pressure 106/62, O2 saturation is 98%. Heart rate is 16. LABORATORY DATA: On the blood work, white count was 14 yesterday, hemoglobin 13.9, hematocrit 41, blood sugar 115. COVID test is still pending. X-ray done yesterday. Chest CT done yesterday shows no evidence of pulmonary embolus, no acute intrathoracic abnormality. Mild cardiomegaly. She also went for abdominal and pelvic CT that showed dilated common duct and pneumobilia, no significant change since 2013. For pneumobilia, we are going to get a GI consult. She also has renal cyst. ASSESSMENT: 1. Chest pain, rule out coronary artery disease. 2. Reflux. 3. Diabetes type 2 with hyperglycemia. 4. Obesity. 5. Hyperlipidemia. 6. Hypothyroidism. 7. Pneumobilia. 8. Renal cyst. PLAN: At the present time is to continue ADA diet, sliding scale. We are awaiting for COVID and Lexiscan stress test. We are going to get a GI consult with Dr. Chucky Davenport. We are going to request MRI for further workup of her renal mass. All this was discussed over the phone with the patient. All questions were answered to satisfaction. MD CORBY Hand/MERLYL /[id number]
[2020-03-03] MEDS: FAMOTIDINE 20 MG/2 ML VIAL IV SCH ×2 (09:50→21:03)
[2020-03-03] MEDS: ASPIRIN 325 MG TAB EC PO SCH (09:50)
[2020-03-03] MEDS: AZITHROMYCIN 250MG/NS 100 ML 100 ML IV SCH (09:50)
[2020-03-03] MEDS ORDERED: SODIUM CHLORIDE 0.9% 50ML 50 ML ONE (10:34)
[2020-03-03] MEDS ORDERED: GADOBENATE DIMEGLUMINE 1 ML IV ONE (10:34)
--- NOTE | 2020-03-03 10:47 | NUR ---
NOTIFIED STAFF MEMBER, YOCASTA, OF NUCLEAR MEDICINE DEPARTMENT THAT DR. Paulina FRAZIER WOULD LIKE LEXISCAN STRESS TEST FOR PATIENT AT 1030 ON 03/04/20.
[2020-03-03] MEDS ORDERED: REGADENOSON 0.4 MG/5 ML SYR IV ONE (10:59)
--- NOTE | 2020-03-03 11:21 | NUR ---
CALLED DR. YONAS TORRES'S OFFICE TO NOTIFY HIM OF CONSULT AT 1030. ACTIVE DIRECTORY SYSTEMS ADMINISTRATOR STATED, "DR. TORRES IS OUT OF TOWN ACTUALLY. YOU WILL NEED TO REACH OUT TO DAMION TOMLINSON BECAUSE HE IS COVERING FOR HIM."
--- NOTE | 2020-03-03 11:31 | NUR ---
CONSULT CALLED TO Celso TOMLINSON'S OFFICE AT APPROXIMATELY [phone]
--- NOTE | 2020-03-03 11:42 | NUR ---
CECILIA FROM DR. TORRES'S OFFICE ([phone]) CALLED FACILITY STATING THAT DR. TORRES IS AWARE OF CONSULT AND WILL SEE PATIENT TODAY.
--- NOTE | 2020-03-03 23:30 | NUR ---
PATIENT C/O PAIN AND LEAKAGE WITH SALINE FLUSH TO 20G IV TO R FA. IV D/C CATHETER TIP INTACT. CDI DRESSING PLACED.
[2020-03-04] VITALS (7 sets, daily range): BP systolic 133–183; BP diastolic 71–102
[2020-03-04] MEDS: SODIUM CHLORIDE 0.9% 1000ML 1,000 ML IV SCH (06:08)
[2020-03-04] MEDS: HYDROMORPHONE 1MG/1ML INJ IV PRN ×4 (06:16→21:14)
--- NOTE | 2020-03-04 07:29 | NUR ---
REPORT GIVEN TO DAYSHIFT NURSE. ALERT AND RESTING IN BED. NO SIGNS IV INFILTRATION. NO ADVERSE SIGNS OR SYMPTOMS. ALL SAFETY PRECAUTIONS PRESENT. CALL LIGHT WITHIN REACH.
[2020-03-04] MEDS: INSULIN LISPRO 100 UNIT/1 ML 3ML VIAL SQ SCH ×4 (07:30→21:00)
[2020-03-04] MEDS: ASPIRIN 325 MG TAB EC PO SCH (09:00)
[2020-03-04] MEDS: METOPROLOL TARTRATE 25 MG TAB PO SCH ×2 (09:00→16:37)
--- NOTE | 2020-03-04 09:34 | NUR ---
Patient is transported for procedure at this time.
--- NOTE | 2020-03-04 10:02 | Discharge Summary ---
HOSPITAL COURSE: Ms. Hastings is a 54-year-old female with history of diabetes, hypertension, hyperlipidemia, reflux, and hypothyroidism, who had an abnormal stress test two years ago, but never follow up on that. She came to the emergency room complaining of chest pain. She is going for Lexiscan stress test today. COVID test came back negative. She was found to have a mass in her kidney, pneumobilia. We are awaiting for GI to see her. If all the workup comes back negative, she is going to be able to go home today. PHYSICAL EXAMINATION: GENERAL: She is awake and alert. VITAL SIGNS: Temperature is 98, blood pressure 135/79. HEART: Regular rate. LUNGS: Clear to auscultation. ABDOMEN: Soft. LABORATORY DATA: On the blood work, white count 14, hemoglobin 13.9, hematocrit 41. COVID test came back negative. Blood sugar today 88. Abdominal and pelvic CT showed pneumobilia and a questionable mass on her kidney. ASSESSMENT: 1. Chest pain. For Lexiscan stress test today. 2. Reflux. 3. Diabetes type 2 with hyperglycemia. 4. Obesity. 5. Hyperlipidemia. 6. Hypothyroidism. 7. Pneumobilia. We are awaiting for GI consult. 8. Renal cyst. MRI to rule out malignancy. PLAN: At present time is to continue sliding scale. ADA diet. If Lexiscan stress test comes back negative, if GI evaluates the patient and if an MRI of the kidney comes back negative, the patient is going to be able to go home and follow up as an outpatient. All this was discussed in detail with the patient. All questions were answered to satisfaction. Please see home medication reconciliation list. MD CORBY Hand/MODL /[id number]
[2020-03-04] MEDS ORDERED: GADOBENATE DIMEGLUMINE 1 ML IV ONE (10:12)
[2020-03-04] MEDS ORDERED: SODIUM CHLORIDE 0.9% 50ML 50 ML ONE (10:12)
--- NOTE | 2020-03-04 11:34 | NUR ---
Patient is back from procedure.
[2020-03-04] MEDS: FAMOTIDINE 20 MG/2 ML VIAL IV SCH ×2 (11:39→21:05)
[2020-03-04] MEDS: AZITHROMYCIN 250MG/NS 100 ML 100 ML IV SCH (11:39)
[2020-03-04] MEDS: ONDANSETRON HCL INJ 2MG/ML 2ML 2 MG/ML VIAL IV PRN ×3 (11:47→21:45)
--- NOTE | 2020-03-04 18:29 | Myoview Stress Test ---
DATE OF STUDY: 03/03/2020 10:44:00 TITLE OF REPORT: Lexiscan nuclear stress test, two-day protocol. Rest/stress single photon emission computed tomographic imaging. INDICATION FOR STUDY: Chest pain. TECHNICAL DETAILS: After risks, benefits, pros and cons to the Lexiscan nuclear stress test were explained to the patient, the patient agreed to proceed. She was brought down to the nuclear lab on March 03, 2020, and received a 14.0 millicurie dose of technetium-99m tetrofosmin intravenously and the patient was taken to the [facility] SPECT camera for resting computed tomographic imaging. The next day, the patient was then brought to the stress lab where 12-lead EKG and monitoring and blood pressure monitoring were obtained. She received a dose of Lexiscan 0.4 mg intravenously followed by 32.5 millicurie dose of technetium-99m tetrofosmin intravenously. Resting heart rate went from a baseline of 57 beats per minute to a maximum of 84 beats per minute. Blood pressure went from baseline of 136/82 down to 126/75, which is an appropriate hemodynamic response. Underlying heart rate revealed sinus rhythm, normal axis, nonspecific ST-T wave changes and with Lexiscan infusion there were no ischemic EKG changes or symptoms. After 25 minutes, the patient was then taken to the SPECT camera for stress myocardial perfusion imaging. FINDINGS: 1. Resting myocardial perfusion imaging reveals a small to moderate area of decreased uptake in the inferior and inferolateral wall extending into the apical region. 2. Stress myocardial perfusion imaging reveals a moderate area of decreased uptake in the inferior and inferolateral wall as well as a moderate area of decreased uptake in the apical wall and distal anterior wall. 3. The following gated measurements were obtained. End-diastolic volume 83 mL, end-systolic volume 27 mg, calculated left ventricular ejection fraction is 67% with normal wall motion. CONCLUSIONS: 1. Abnormal myocardial perfusion imaging study revealing a small to moderate area of decreased uptake in the anterior, distal anterior and apical perez consistent with ischemia as well as a moderate area of decreased uptake in the inferior and inferolateral wall, which is partially reversible, compatible with a combination of infarct with lasha-infarct ischemia. 2. Normal left ventricular function with calculated ejection fraction of 67%. 3. Overall finding of SPECT study is compatible with moderate to high risk nuclear stress test. Ahmad MD MORGAN Lazo/NAKUL /[id number]
[2020-03-04] MEDS: ATORVASTATIN 40 MG TAB PO SCH (21:00)
[2020-03-05] VITALS: BP 154/98
[2020-03-05] MEDS: ONDANSETRON HCL INJ 2MG/ML 2ML 2 MG/ML VIAL IV PRN ×2 (01:45→09:11)
[2020-03-05] MEDS: SODIUM CHLORIDE 0.9% 1000ML 1,000 ML IV SCH (02:30)
[2020-03-05 05:49] VITALS: BP 156/72
--- NOTE | 2020-03-05 07:22 | NUR ---
REPORT GIVEN TO DAYSHIFT NURSE. ALERT AND ORIENTED. RESTING IN BED. NO SIGNS IV INFILTRATION. BED LOCKED AND IN LOW POSITION. CALL LIGHT WITHIN REACH
[2020-03-05] MEDS: INSULIN LISPRO 100 UNIT/1 ML 3ML VIAL SQ SCH (07:30)
[2020-03-05 08:30] VITALS: BP 145/94
[2020-03-05 08:59] VITALS: BP 145/94
[2020-03-05] MEDS: ASPIRIN 325 MG TAB EC PO SCH (09:10)
[2020-03-05] MEDS: FAMOTIDINE 20 MG/2 ML VIAL IV SCH (09:10)
[2020-03-05] MEDS: METOPROLOL TARTRATE 25 MG TAB PO SCH (09:11)
[2020-03-05] MEDS: AZITHROMYCIN 250MG/NS 100 ML 100 ML IV SCH (09:11)
[2020-03-05] MEDS ORDERED: ATORVASTATIN CA20 MG PO (11:10)
[2020-03-05] MEDS ORDERED: PROMETHAZINE HC25 M1 PO (11:14)
[2020-03-05] MEDS ORDERED: PHENERGAN SUPP25 MG (11:14)
[2020-03-05] MEDS ORDERED: PROTONIX40 MG/ML PO (11:16)
[2020-03-05] MEDS ORDERED: METOPROLOL TART25 MG PO (11:17)
[2020-03-05] MEDS ORDERED: ASPIRIN81 MG PO (11:17)
[2020-03-05] MEDS ORDERED: PLAVIX75 MG PO (11:17)
--- NOTE | 2020-03-05 11:26 | Discharge Summary ---
ADMISSION DIAGNOSES: 1. Angina. 2. Hypertensive heart disease. DISCHARGE DIAGNOSES: 1. Ischemic heart disease, likely. 2. Chronic diastolic congestive heart failure. 3. Hypertensive heart disease. 4. Hypothyroidism. 5. Obesity, BMI 36. 6. Gastroesophageal reflux disease. HOSPITAL COURSE: A 54-year-old white woman, who was initially admitted to [facility] with diagnosis of atypical chest pain and hypertension. During this hospitalization, the patient underwent a nuclear stress test that did reveal some abnormalities. The patient was found to have decreased uptake in the inferior and inferolateral perez which the interpreting sales department supervisor felt was reversible. Apparently, the patient had a similar abnormal stress test in 2017, but at that time refused left heart catheterization according to the sales department supervisor namely, Dr. Joy Vasquez. During this hospitalization, the patient was seen by Dr. Burger because on admission, she underwent a CT of the abdomen and pelvis, which revealed nonspecific pneumobilia. However, this finding was unchanged from a CT of the abdomen and pelvis that was performed in 2013. Dr. Burger felt the patient was stable to be discharged home. The patient was seen by Cardiology, namely Dr. Joy Vasquez during this hospitalization and he also felt it was safe for the patient to be discharged home. The patient was found to have an LDL cholesterol of 161 mg/dL. She was started on atorvastatin 40 mg every night. Her TSH during hospitalization was normal at 1.126. The patient underwent echocardiogram during this hospitalization, which revealed a preserved left ventricular ejection fraction of 60% but did reveal diastolic filling pattern indicating impaired relaxation. Thus, the patient was diagnosed with diastolic heart failure. The patient underwent a CT of the chest during this hospitalization, which revealed mild cardiomegaly with mild atherosclerotic calcifications of the coronary vessels. The patient's condition on discharge stable. She was chest pain free on discharge. DISCHARGE MEDICATIONS: 1. Metoprolol tartrate 25 mg b.i.d. 2. Clopidogrel 75 mg daily. 3. Aspirin 81 mg daily. 4. Pantoprazole 40 mg every morning. 5. Promethazine 25 mg every 6 hours p.r.n. nausea and vomiting, 20 prescribed, no refills. 6. Tramadol 50 mg t.i.d. p.r.n. pain, 45 prescribed, no refills. 7. Atorvastatin 40 mg at bedtime. 8. Levothyroxine 25 mcg daily. 9. [place] Thyroid 30 mg every other day. 10. [place] Thyroid 60 mg every other day. FOLLOWUP INSTRUCTIONS: The patient is instructed to follow up with Cardiology, namely Dr. Joy Vasquez at noon on Saturday, March 08, 2020. The patient will be scheduled for tentative outpatient left heart catheterization at that time. The patient instructed to go to the nearest emergency room if she has any recurrence of chest pain. The patient is to follow Dr. Brown, her new primary care physician within 1 week. MD PIOTR Henderson/NAKUL /[id number] cc: MD Joy Combs MD MTDD
[2020-03-05 11:30] VITALS: BP 150/90
--- NOTE | 2020-03-05 11:59 | NUR ---
Discharge education provided. Prescriptions given along with discharge instructions and packet. Verbalized understanding regarding follow-up appointment with motor inspection mechanic on Saturday. PIV to right AC removed, catheter tip intact, no bleeding noted. Transported patient via wheelchair to private vehicle with all personal belongings taken. Respiration even and unlabored without SOB.
== END 2020-03-05 11:59 | disposition home or self-care (01) | DRG 303 ==
LOC: FSED 11:48 → ERHOLD 15:20 → MED/SURG2 17:40 → MED/SURG3 03-02 09:14 → OBSVTOIN 03-03 14:38
PROVIDERS: ADMIT Internal Medicine; ATTEND Internal Medicine
DX: I25.10 Atherosclerotic heart disease of native coronary artery without angina pectoris (principal); I50.32 Chronic diastolic (congestive) heart failure; I11.0 Hypertensive heart disease with heart failure; R07.89 Other chest pain; E03.9 Hypothyroidism, unspecified; E78.5 Hyperlipidemia, unspecified; K21.9 Gastro-esophageal reflux disease without esophagitis; E11.65 Type 2 diabetes mellitus with hyperglycemia; E66.9 Obesity, unspecified; Z90.49 Acquired absence of other specified parts of digestive tract; Z20.828 Contact with and (suspected) exposure to other viral communicable diseases; N28.1 Cyst of kidney, acquired; Z68.36 Body mass index [BMI] 36.0-36.9, adult
CPT/HCPCS: 36415; 71046; 71260; 74177; 78452; 80048; 80053; 80061; 80076; 82150; 82550; 82553; 82948; 83690; 83880; 84443; 84484; 85025; 85379; 85610; 93005; 93017; 93306; 96361; 96372; 96374; 96375; 99251; 99284; A9502; G0378; J1170; J1650; J2060; J2270; J2405; J7030; Q9967; U0002